=== PATIENT | male | born 1995 | race Caucasian/White ===

== ENCOUNTER 2017-10-18 18:55 | Emergency (ER) | payer OTHER ==
[2017-10-18 19:42] VITALS: TEMP 99.6
[2017-10-18 20:14] VITALS: BP 129/90; PULSE 70
[2017-10-18 20:29] VITALS: RESP 18
--- NOTE | 2017-10-18 20:47 | XR ---
EXAMINATION: XR chest 2V DATE AND TIME: 10/18/2017 8:40 PM ORDERING PROVIDER: Edenilson Gray CLINICAL INDICATION: cough TECHNIQUE: PA and lateral COMPARISON: None. DESCRIPTION: The lungs are clear. The pleural spaces are negative. The cardiac silhouette is not enlarged. The mediastinal and pleural silhouettes are unremarkable. The skeletal structures are intact without focal findings. The soft tissues are unremarkable. IMPRESSION: NO ACUTE PROCESS.
--- NOTE | 2017-10-18 20:50 | ED ---
General Adult HPI - General Chief complaint: Upper Respiratory Infection Stated complaint: congested Time Seen by Provider: 10/18/17 20:21 Source: patient, RN notes reviewed Mode of arrival: ambulatory Limitations: no limitations - History of Present Illness Initial comments: Patient 23-year-old male who presents emergency room today with multiple complaints. Patient does admit that he's had some cough congestion over the last 3 days. 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 She does not always wear mask. Unsure if this is related. Does not that she had some aches and chills over the weekend but not as bad this time. States he had some sputum production with his cough earlier today that was yellow. Patient also admits to some pain to the right middle finger. Patient does admit that he's had some pains swelling to the top the nailbed. Denies any drainage discharge. Denies any complaints. Patient denies any recent fever, chills, shortness of breath, chest pain, back pain, abdominal pain, nausea or vomiting, numbness or tingling, dysuria or hematuria, constipation or diarrhea, headaches or visual changes, or any other complaints. - Related Data Home Medications Medication Instructions Recorded Confirmed ARIPiprazole [Abilify] 2 mg PO DAILY 10/18/17 10/18/17 Cholecalciferol [Vitamin D3] 5,000 unit PO DAILY 10/18/17 10/18/17 Lisinopril [Zestril] 5 mg PO DAILY 10/18/17 10/18/17 [place] Carbonate 150 mg PO DAILY 10/18/17 10/18/17 Multivitamins, Thera [Multivitamin 1 tab PO DAILY 10/18/17 10/18/17 (formulary)] Venlafaxine HCl ER [Effexor Xr] 75 mg PO DAILY 10/18/17 10/18/17 Previous Rx's Medication Instructions Recorded Cephalexin [Keflex] 500 mg PO Q12HR 10 Days cap 10/18/17 Allergies Allergy/AdvReac Type Severity Reaction Status Date / Time No Known Allergies Allergy Verified 10/18/17 20:22 Review of Systems ROS Statement: Those systems with pertinent positive or pertinent negative responses have been documented in the HPI. ROS Other: All systems not noted in ROS Statement are negative. Past Medical History Past Medical History: No Reported History Additional Past Medical History / Comment(s): bipolar History of Any Multi-Drug Resistant Organisms: None Reported Past Surgical History: No Surgical Hx Reported Past Psychological History: Anxiety, Bipolar, Depression Smoking Status: Former smoker Past Alcohol Use History: None Reported Past Drug Use History: None Reported General Exam - General Exam Comments Initial Comments: General: The patient is awake and alert, in no distress, and does not appear acutely ill. Eye: Pupils are equal, round and reactive to light, extra-ocular movements are intact. No nystagmus. There is normal conjunctiva bilaterally. No signs of icterus. Ears, nose, mouth and throat: There are moist mucous membranes and no oral lesions. Neck: The neck is supple, there is no tenderness or JVD. Cardiovascular: There is a regular rate and rhythm. No murmur, rub or gallop is appreciated. Respiratory: Lungs are clear to auscultation, respirations are non-labored, breath sounds are equal. No wheezes, stridor, rales, or rhonchi. Musculoskeletal: Normal ROM, no tenderness. Strength 5/5. Sensation intact. Pulses equal bilaterally 2+. Neurological: A&O x 3. CN II-XII intact, There are no obvious motor or sensory deficits. Coordination appears grossly intact. Speech is normal. Skin: Patient does have paronychia to the right middle finger. Psychiatric: Cooperative, appropriate mood & affect, normal judgment. Limitations: no limitations Course Vital Signs 10/18/17 10/18/17 10/18/17 19:38 19:42 20:15 Temperature 99.6 F Pulse Rate 58 L 70 Respiratory 20 16 18 Rate Blood Pressure 134/81 129/90 O2 Sat by Pulse 99 100 Oximetry Procedures - Procedures Initial comment: Betadine was used to clean the right finger. An 11 blade was used to make small incision parallel to the nail bed. Small amount of drainage was removed. Patient tolerated well. Medical Decision Making - Medical Decision Making X-ray reviewed negative for any sign of pneumonia. No other acute abnormality. Patient's right index finger was lanced emergency room. Patient will be started on antibiotics cover for paronychia infection. Advised warm soaks. Advised return if symptoms increase worsen. Disposition Clinical Impression: Paronychia, Upper respiratory infection Disposition: HOME SELF-CARE Condition: Good Instructions: Paronychia (ED) Additional Instructions: Please use medication as discussed. Please follow-up with family doctor in the next 2 days of symptoms have not improved. Please return to emergency room if the symptoms increase or worsen or for any other concerns. Prescriptions: Cephalexin [Keflex] 500 mg PO Q12HR 10 Days cap Is patient prescribed a controlled substance at discharge?: No Referrals: None,Stated [Primary Care Provider] - 1-2 days Kathi Mora MD [STAFF PHYSICIAN] - 1-2 days Time of Disposition: 20:55
== END 2017-10-18 21:04 | disposition home or self-care (01) ==
LOC: EC 18:55
DX: J06.9 Acute upper respiratory infection, unspecified (principal); L03.011 Cellulitis of right finger; F31.9 Bipolar disorder, unspecified; F41.9 Anxiety disorder, unspecified; Z87.891 Personal history of nicotine dependence; Z79.899 Other long term (current) drug therapy
CPT/HCPCS: 10060; 71046; 99283

== ENCOUNTER 2018-01-11 16:43 | Emergency (ER) | payer OTHER ==
[2018-01-11 16:53] VITALS: BP 139/75; PULSE 77; RESP 20; TEMP 98.8
--- NOTE | 2018-01-11 17:45 | ED ---
General Adult HPI - General Chief complaint: Recheck/Abnormal Lab/Rx Stated complaint: poss STD Time Seen by Provider: 01/11/18 17:09 Source: patient, RN notes reviewed Mode of arrival: ambulatory Limitations: no limitations - History of Present Illness Initial comments: 22-year-old male presents to the emergency department for a chief complaint of lesion on penis 2 weeks. Patient states the lesion started 2 weeks ago and has since resolved. He states it looked like a pimple but that it has since healed. Patient states he had "close contact" with a female diagnosed with genital herpes. Patient denies having sexual intercourse with this person. Patient denies any fevers or chills. Patient denies any discharge from the penis. Patient denies any pain with urination or difficulty urinating. Patient denies any feelings of lethargy or rashes. Patient has no other complaints at this time including shortness of breath, chest pain, abdominal pain, nausea or vomiting, headache, or visual changes. - Related Data Home Medications Medication Instructions Recorded Confirmed ARIPiprazole [Abilify] 2 mg PO DAILY 10/18/17 10/18/17 Cholecalciferol [Vitamin D3] 5,000 unit PO DAILY 10/18/17 10/18/17 Lisinopril [Zestril] 5 mg PO DAILY 10/18/17 10/18/17 [place] Carbonate 150 mg PO DAILY 10/18/17 10/18/17 Multivitamins, Thera [Multivitamin 1 tab PO DAILY 10/18/17 10/18/17 (formulary)] Venlafaxine HCl ER [Effexor Xr] 75 mg PO DAILY 10/18/17 10/18/17 Previous Rx's Medication Instructions Recorded Cephalexin [Keflex] 500 mg PO Q12HR 10 Days cap 10/18/17 Allergies Allergy/AdvReac Type Severity Reaction Status Date / Time No Known Allergies Allergy Verified 01/11/18 17:18 Review of Systems ROS Statement: Those systems with pertinent positive or pertinent negative responses have been documented in the HPI. ROS Other: All systems not noted in ROS Statement are negative. Past Medical History Past Medical History: No Reported History Additional Past Medical History / Comment(s): bipolar History of Any Multi-Drug Resistant Organisms: None Reported Past Surgical History: No Surgical Hx Reported Past Psychological History: Anxiety, Bipolar, Depression Smoking Status: Former smoker Past Alcohol Use History: None Reported Past Drug Use History: None Reported General Exam Limitations: no limitations General appearance: alert, in no apparent distress Head exam: Present: atraumatic, normocephalic, normal inspection Eye exam: Present: normal appearance ENT exam: Present: normal exam, mucous membranes moist Neck exam: Present: normal inspection, full ROM. Absent: tenderness, meningismus, lymphadenopathy Respiratory exam: Present: normal lung sounds bilaterally. Absent: respiratory distress, wheezes, rales, rhonchi, stridor Cardiovascular Exam: Present: regular rate, normal rhythm, normal heart sounds. Absent: systolic murmur, diastolic murmur, rubs, gallop, clicks exam: Present: other (there is a small healed <0.5 cm x 0.5 cm lesion on the lateral aspect of penis. Sore is not open at this time. No other lesions noted) . Absent: urethral discharge (no discharge noted from the penis), scrotal swelling Course Vital Signs 01/11/18 16:50 Temperature 98.8 F Pulse Rate 77 Respiratory 20 Rate Blood Pressure 139/75 O2 Sat by Pulse 100 Oximetry Medical Decision Making - Medical Decision Making 22-year-old male presents to the emergency department for a chief complaint of concern for STD. Patient states he was exposed to genital herpes by "close contact" but did not have sexual intercourse with this person. Patient denies any urethral discharge, fever, rashes or chills. Patient does state there was a small lesion noted on his penis that has since resolved. On exam there is a very small lesion less than 0.5 cm on the lateral aspect of the penis. Lesion is healed and is not ulcerated. it does not appear to be herpes or chancre. Patient tested for gonorrhea, chlamydia, and syphilis. Not able to swab for herpes as lesion is healed. Patient refuses treatment for GC at this time as he does not believe he has these and wants to wait for the results. Patient will follow up with primary care in 1-2 days. patient aware he can return to the ED if he has any worsening symptoms. Disposition Clinical Impression: Concern about STD in male without diagnosis Disposition: HOME SELF-CARE Condition: Good Instructions: Sexually Transmitted Diseases (ED), Safe Sex (ED) Additional Instructions: Please return to the emergency department if you have any worsening symptoms. Follow up with primary care in 1-2 days. You will receive a call if any lab testing is abnormal in the next week or you can check your patient portal for results. Is patient prescribed a controlled substance at d/c from ED?: No Referrals: Stanislaw Juarez MD [STAFF PHYSICIAN] - 1-2 days Time of Disposition: 17:44
[2018-01-12 14:21] LABS: C. trachomatis,PCR Negative (Neg,Equiv); Chlamydia trachomatis Source Urine; N. gonorrhoeae,PCR Negative (Neg,Equiv); Neisseria Source Urine
== END 2018-01-11 18:10 | disposition home or self-care (01) ==
LOC: EC 16:43
DX: Z20.2 Contact with and (suspected) exposure to infections with a predominantly sexual mode of transmission (principal); N48.89 Other specified disorders of penis; F31.9 Bipolar disorder, unspecified; F41.9 Anxiety disorder, unspecified; Z87.891 Personal history of nicotine dependence; Z79.899 Other long term (current) drug therapy
CPT/HCPCS: 36415; 86780; 87491; 87591; 99283

== ENCOUNTER 2018-01-27 14:58 | Emergency (ER) | payer OTHER ==
--- NOTE | 2018-01-27 15:17 | ED ---
General Adult HPI - General Stated complaint: sleepiness/lethargy Time Seen by Provider: 01/27/18 15:16 Source: patient, RN notes reviewed Mode of arrival: ambulatory Limitations: no limitations - History of Present Illness Initial comments: 22-year-old male presents to the emergency department for a chief complaint of sleepiness times a few months. Patient states he has been more tired than normal. Patient denies any fevers or night sweats. Patient admits to a history of depression and states perhaps he has been feeling more sad than normal but denies any suicidal thoughts or thoughts of harming himself. Patient states he is concerned that perhaps the sleepiness is caused by diabetes as his sister was recently diagnosed. Patient also complains of left flank pain 2 days. Patient states he may have slept on it wrong but he is unsure. Patient questions whether he could have a kidney stone. Patient denies any testicular pain when asked. He states the pain is all in his left side back. Patient denies blood in the urine. Patient denies any urinary symptoms such as pain or burning with urination. Patient has no other complaints at this time including shortness of breath, chest pain, abdominal pain, nausea or vomiting, headache, or visual changes. - Related Data Home Medications Medication Instructions Recorded Confirmed ARIPiprazole [Abilify] 2 mg PO DAILY 10/18/17 01/11/18 Cholecalciferol [Vitamin D3] 5,000 unit PO DAILY 10/18/17 01/11/18 [place] Carbonate 150 mg PO DAILY 10/18/17 01/11/18 Multivitamins, Thera [Multivitamin 1 tab PO DAILY 10/18/17 01/11/18 (formulary)] [place] Carbonate 600 mg PO BID 01/11/18 01/11/18 Venlafaxine HCl [Effexor XR] 75 mg PO QAM 01/11/18 01/11/18 Allergies Allergy/AdvReac Type Severity Reaction Status Date / Time No Known Allergies Allergy Verified 01/27/18 15:20 Review of Systems ROS Statement: Those systems with pertinent positive or pertinent negative responses have been documented in the HPI. ROS Other: All systems not noted in ROS Statement are negative. Past Medical History Past Medical History: No Reported History Additional Past Medical History / Comment(s): bipolar History of Any Multi-Drug Resistant Organisms: None Reported Past Surgical History: No Surgical Hx Reported Past Psychological History: Anxiety, Bipolar, Depression Smoking Status: Former smoker Past Alcohol Use History: None Reported Past Drug Use History: None Reported General Exam General appearance: alert, in no apparent distress (sitting on edge of bed cooperative and answering questions) Head exam: Present: atraumatic, normocephalic, normal inspection Eye exam: Present: normal appearance. Absent: scleral icterus, conjunctival injection Neck exam: Present: normal inspection, full ROM. Absent: tenderness, meningismus, lymphadenopathy Respiratory exam: Present: normal lung sounds bilaterally. Absent: respiratory distress, wheezes, rales, rhonchi, stridor Cardiovascular Exam: Present: regular rate, normal rhythm, normal heart sounds. Absent: systolic murmur, diastolic murmur, rubs, gallop, clicks GI/Abdominal exam: Present: soft, normal bowel sounds. Absent: distended, tenderness, guarding, rebound, rigid Back exam: Present: full ROM (full flexion, extension, and rotation of back bilaterally), CVA tenderness (L), paraspinal tenderness (mild left sided mid back tenderness). Absent: tenderness (no tenderness in the cervical, thoracic, or lumbar spine.), CVA tenderness (R) Course Vital Signs 01/27/18 15:15 Temperature 98.3 F Pulse Rate 69 Respiratory 18 Rate Blood Pressure 132/82 O2 Sat by Pulse 99 Oximetry Medical Decision Making - Medical Decision Making 22-year-old male presents to the emergency department for a chief complaint of sleepiness 3 months. Patient concerned this could be diabetes as his sister was recently diagnosed. Patient has not had a history of diabetes before. Patient denies fevers or chills. No increased night sweats. Patient also complains of left-sided flank pain, denies history of kidney stones. Denies testicular pain multiple times. Vitals within normal limits on the emergency department. On exam patient has mild left flank tenderness as well as mild CVA tenderness. No abdominal pain. No other exam findings evident. Patient appears well on exam and is cooperative and pleasant. CBC and CMP unremarkable. Glucose 94. Urine shows no evidence of blood or infection. Discussed with patient that he may be feeling tired due to his history of depression. Patient was recommended to follow up with a primary care provider for this and back pain. If he has any thoughts of suicide or thoughts of harming himself he is to return to the emergency department. He is to return if he has any worsening flank pain. - Lab Data Result diagrams: 01/27/18 15:34 01/27/18 15:34 Lab Results 01/27/18 01/27/18 01/27/18 Range/Units 15:34 15:34 15:34 WBC 8.8 (3.8-10.6) k/uL RBC 5.47 (4.30-5.90) m/uL Hgb 14.7 (13.0-17.5) gm/dL Hct 46.0 (39.0-53.0) % MCV 84.0 (80.0-100.0) fL MCH 26.8 (25.0-35.0) pg MCHC 31.9 (31.0-37.0) g/dL RDW 12.5 (11.5-15.5) % Plt Count 347 (150-450) k/uL Neutrophils % 70 % Lymphocytes % 20 % Monocytes % 3 % Eosinophils % 3 % Basophils % 1 % Neutrophils # 6.1 (1.3-7.7) k/uL Lymphocytes # 1.8 (1.0-4.8) k/uL Monocytes # 0.3 (0-1.0) k/uL Eosinophils # 0.3 (0-0.7) k/uL Basophils # 0.1 (0-0.2) k/uL Sodium 138 (137-145) mmol/L Potassium 4.8 (3.5-5.1) mmol/L Chloride 104 (98-107) mmol/L Carbon Dioxide 26 (22-30) mmol/L Anion Gap 8 mmol/L BUN 15 (9-20) mg/dL Creatinine 1.00 (0.66-1.25) mg/dL Est GFR (CKD-EPI)AfAm >90 (>60 ml/min/1.73 sqM) Est GFR (CKD-EPI)NonAf >90 (>60 ml/min/1.73 sqM) Glucose 94 (74-99) mg/dL Calcium 10.1 (8.4-10.2) mg/dL Total Bilirubin 0.5 (0.2-1.3) mg/dL AST 27 (17-59) U/L ALT 33 (21-72) U/L Alkaline Phosphatase 67 (38-126) U/L Total Protein 7.9 (6.3-8.2) g/dL Albumin 4.8 (3.5-5.0) g/dL Urine Color Light Yellow Urine Appearance Clear (Clear) Urine pH 7.5 (5.0-8.0) Ur Specific [place] 1.009 (1.001-1.035) Urine Protein Negative (Negative) Urine Glucose (UA) Negative (Negative) Urine Ketones Negative (Negative) Urine Blood Negative (Negative) Urine Nitrite Negative (Negative) Urine Bilirubin Negative (Negative) Urine Urobilinogen <2.0 (<2.0) mg/dL Ur Leukocyte Esterase Negative (Negative) Disposition Clinical Impression: Muscle spasm of back Disposition: HOME SELF-CARE Condition: Good Instructions: Muscle Spasm (ED), Depression (ED) Additional Instructions: Please take motrin for pain. Please follow up with primary care provider in 1-2 days. Return to the emergency department if you have any worsening symptoms. Is patient prescribed a controlled substance at d/c from ED?: No Referrals: Bernardo House MD [STAFF PHYSICIAN] - 1-2 days Time of Disposition: 16:46
[2018-01-27 15:20] VITALS: BP 132/82; PULSE 69; RESP 18; TEMP 98.3
[2018-01-27 16:07] LABS: Appearance,Urine Clear (Clear); Bilirubin,Urine Negative (Negative); Blood,Urine Negative (Negative); Color,Urine Light Yellow; Glucose,Urine (UA) Negative (Negative); Ketones,Urine Negative (Negative); Leukocyte Esterase,Urine Negative (Negative); Nitrite,Urine Negative (Negative); PH, Urine 7.5 (5.0-8.0); Protein,Urine Negative (Negative); Specific Gravity,Urine 1.009 (1.001-1.035); Urobilinogen,Urine <2.0 mg/dL (<2.0)
[2018-01-27 16:13] LABS: Basophils # (A) 0.1 k/uL (0-0.2); Basophils % (A) 1 %; Eosinophils # (A) 0.3 k/uL (0-0.7); Eosinophils % (A) 3 %; HGB 14.7 gm/dL (13.0-17.5); Lymphocytes # (A) 1.8 k/uL (1.0-4.8); Lymphocytes % (A) 20 %; MCH 26.8 pg (25.0-35.0); MCHC 31.9 g/dL (31.0-37.0); Mean Platelet Volume 6.3; Monocytes # (A) 0.3 k/uL (0-1.0); Monocytes % (A) 3 %; Neutrophils # (A) 6.1 k/uL (1.3-7.7); Neutrophils % (A) 70 %; Platelet Count 347 k/uL (150-450); RBC 5.47 m/uL (4.30-5.90); RDW 12.5 % (11.5-15.5); WBC 8.8 k/uL (3.8-10.6)
[2018-01-27 16:15] LABS: ALT 33 U/L (21-72); AST 27 U/L (17-59); Albumin 4.8 g/dL (3.5-5.0); Alkaline Phosphatase 67 U/L (38-126); Anion Gap 8 mmol/L; Blood Urea Nitrogen 15 mg/dL (9-20); Calcium 10.1 mg/dL (8.4-10.2); Carbon Dioxide 26 mmol/L (22-30); Chloride 104 mmol/L (98-107); Glucose 94 mg/dL (74-99); Potassium 4.8 mmol/L (3.5-5.1); Sodium 138 mmol/L (137-145); Total Bilirubin 0.5 mg/dL (0.2-1.3); Total Protein 7.9 g/dL (6.3-8.2)
== END 2018-01-27 16:57 | disposition home or self-care (01) ==
LOC: EC 14:58
DX: M62.830 Muscle spasm of back (principal); F31.9 Bipolar disorder, unspecified; F41.9 Anxiety disorder, unspecified; Z79.899 Other long term (current) drug therapy; Z87.891 Personal history of nicotine dependence
CPT/HCPCS: 36415; 80053; 81003; 85025; 99283

== ENCOUNTER → 2018-12-13 | Outpatient (CLI) | payer OTHER ==
--- NOTE | 2018-12-13 12:36 | XR ---
EXAMINATION TYPE: XR hand complete LT DATE OF EXAM: 12/13/2018 CLINICAL HISTORY: Hand injury with pain worse over fingers. TECHNIQUE: Frontal, lateral and oblique images of the left hand are obtained. COMPARISON: None. FINDINGS: There is no acute fracture/dislocation evident in the left hand with particular attention to the fingers. The joint spaces in the left hand appear within normal limits. The overlying soft ti ssue appears unremarkable. IMPRESSION: There is no acute fracture or dislocation in the left hand.
== END | disposition home or self-care (01) ==
LOC: RADXRMAIN 12:04
PROVIDERS: ATTEND Emergency Medicine
DX: S67.22XA Crushing injury of left hand, initial encounter (principal)

== ENCOUNTER 2018-12-25 14:22 | Emergency (ER) | payer OTHER ==
[2018-12-25 14:31] VITALS: RESP 18
[2018-12-25] MEDS ORDERED: KETOROLAC 30 MG/ML 1 ML VIAL IVP STA (14:39)
[2018-12-25] MEDS ORDERED: SODIUM CHLORIDE 0.9% 1,000 ML IV ONE (14:39)
--- NOTE | 2018-12-25 14:41 | ED ---
General Adult HPI - General Chief complaint: Headache Stated complaint: Exposure to mold Time Seen by Provider: 12/25/18 14:32 Source: patient Mode of arrival: ambulatory Limitations: no limitations - History of Present Illness Initial comments: Patient is a 23-year-old male with a history of bipolar depression, currently on lithium, presents with a chief complaint of cough, headache, and body aches. The patient states that he was possibly exposed to black mold yesterday while cleaning out a basement his friends. He states that all of his friends have similar symptoms. Imaging identify any other concerning incidences. There are no aggravating or alleviating factors. Timing is constant. Patient is at her taking any medications for symptom alleviation. - Related Data Home Medications Medication Instructions Recorded Confirmed ARIPiprazole [Abilify] 2 mg PO DAILY 10/18/17 01/11/18 Cholecalciferol [Vitamin D3] 5,000 unit PO DAILY 10/18/17 01/11/[address] [place] Carbonate 150 mg PO DAILY 10/18/17 01/11/18 Multivitamins, Thera [Multivitamin 1 tab PO DAILY 10/18/17 01/11/18 (formulary)] [place] Carbonate 600 mg PO BID 01/11/18 01/11/18 Venlafaxine HCl [Effexor XR] 75 mg PO QAM 01/11/18 01/11/18 Allergies Allergy/AdvReac Type Severity Reaction Status Date / Time No Known Allergies Allergy Verified 12/25/18 14:31 Review of Systems ROS Statement: Those systems with pertinent positive or pertinent negative responses have been documented in the HPI. ROS Other: All systems not noted in ROS Statement are negative. Respiratory: Reports: cough Neurological: Reports: headache Past Medical History Past Medical History: No Reported History Additional Past Medical History / Comment(s): bipolar History of Any Multi-Drug Resistant Organisms: None Reported Past Surgical History: No Surgical Hx Reported Past Psychological History: Anxiety, Bipolar, Depression Smoking Status: Former smoker Past Alcohol Use History: None Reported Past Drug Use History: None Reported General Exam Limitations: no limitations General appearance: alert, in no apparent distress Head exam: Present: atraumatic, normocephalic Eye exam: Present: normal appearance ENT exam: Present: normal exam Neck exam: Present: normal inspection Respiratory exam: Present: normal lung sounds bilaterally. Absent: respiratory distress, wheezes Cardiovascular Exam: Present: regular rate, normal rhythm GI/Abdominal exam: Present: soft. Absent: distended, tenderness Rectal exam: Present: deferred Extremities exam: Present: normal inspection Back exam: Present: normal inspection Neurological exam: Present: alert, oriented X3, normal gait Psychiatric exam: Present: normal affect, normal mood Skin exam: Present: warm, dry, intact Course Vital Signs 12/25/18 14:27 Temperature 98.5 F Pulse Rate 55 L Respiratory 18 Rate Blood Pressure 123/74 O2 Sat by Pulse 97 Oximetry Medical Decision Making - Medical Decision Making Patient presents with chief complaint of cough, congestion, body aches, and headache. I initial evaluation, vital are stable, patient is in no acute distress. He is neurologically intact, ambulatory well without assistance. He is concern for exposure to black mold. He'll be evaluated basic labs including a chest x-ray. Patient takes lithium a daily basis, we will check a lithium level given headache. 3:22 PM Lab evaluation is unremarkable, lithium level is 1.2, within the therapeutic range. Chest x-ray shows no acute process. At this time, patient stable for discharge. He was instructed to use antihistamines for symptom relief, Motrin and Tylenol as needed for body aches and follow-up primary care in 1-2 days, r eturn to ED if symptoms worsen or change. - Lab Data Result diagrams: 12/25/18 14:50 12/25/18 14:50 Lab Results 12/25/18 12/25/18 Range/Units 14:50 14:50 WBC 7.3 (3.8-10.6) k/uL RBC 4.86 (4.30-5.90) m/uL Hgb 13.5 (13.0-17.5) gm/dL Hct 42.2 (39.0-53.0) % MCV 86.9 (80.0-100.0) fL MCH 27.7 (25.0-35.0) pg MCHC 31.9 (31.0-37.0) g/dL RDW 12.7 (11.5-15.5) % Plt Count 288 (150-450) k/uL Neutrophils % 72 % Lymphocytes % 15 % Monocytes % 8 % Eosinophils % 2 % Basophils % 1 % Neutrophils # 5.3 (1.3-7.7) k/uL Lymphocytes # 1.1 (1.0-4.8) k/uL Monocytes # 0.6 (0-1.0) k/uL Eosinophils # 0.1 (0-0.7) k/uL Basophils # 0.1 (0-0.2) k/uL Sodium 140 (137-145) mmol/L Potassium 3.8 (3.5-5.1) mmol/L Chloride 105 (98-107) mmol/L Carbon Dioxide 26 (22-30) mmol/L Anion Gap 9 mmol/L BUN 10 (9-20) mg/dL Creatinine 1.00 (0.66-1.25) mg/dL Est GFR (CKD-EPI)AfAm >90 (>60 ml/min/1.73 sqM) Est GFR (CKD-EPI)NonAf >90 (>60 ml/min/1.73 sqM) Glucose 122 H (74-99) mg/dL Calcium 9.6 (8.4-10.2) mg/dL [place] 1.2 mmol/L Disposition Clinical Impression: Viral syndrome, URI (upper respiratory infection) Disposition: HOME SELF-CARE Condition: Good Instructions (If sedation given, give patient instructions): Acute Headache (ED), Upper Respiratory Infection (ED) Is patient prescribed a controlled substance at d/c from ED?: No Referrals: None,Stated [Primary Care Provider] - 1-2 days Kathi Mora MD [STAFF PHYSICIAN] - 1-2 days
[2018-12-25 15:08] LABS: Basophils # (A) 0.1 k/uL (0-0.2); Basophils % (A) 1 %; Eosinophils # (A) 0.1 k/uL (0-0.7); Eosinophils % (A) 2 %; HCT 42.2 % (39.0-53.0); HGB 13.5 gm/dL (13.0-17.5); Lymphocytes # (A) 1.1 k/uL (1.0-4.8); Lymphocytes % (A) 15 %; MCH 27.7 pg (25.0-35.0); MCHC 31.9 g/dL (31.0-37.0); MCV 86.9 fL (80.0-100.0); Mean Platelet Volume 6.4; Monocytes # (A) 0.6 k/uL (0-1.0); Monocytes % (A) 8 %; Neutrophils # (A) 5.3 k/uL (1.3-7.7); Neutrophils % (A) 72 %; Platelet Count 288 k/uL (150-450); RBC 4.86 m/uL (4.30-5.90); RDW 12.7 % (11.5-15.5); WBC 7.3 k/uL (3.8-10.6)
[2018-12-25 15:17] LABS: African American GFR (CKD) >90 (>60 ml/min/1.73 sqM); Anion Gap 9 mmol/L; Blood Urea Nitrogen 10 mg/dL (9-20); Calcium 9.6 mg/dL (8.4-10.2); Carbon Dioxide 26 mmol/L (22-30); Chloride 105 mmol/L (98-107); Glucose 122 mg/dL (74-99); Lithium 1.2 mmol/L; Potassium 3.8 mmol/L (3.5-5.1); Sodium 140 mmol/L (137-145)
--- NOTE | 2018-12-25 15:21 | XR ---
EXAMINATION TYPE: XR chest 2V DATE OF EXAM: 12/25/2018 COMPARISON: 10/18/2017 HISTORY: Cough TECHNIQUE: Frontal and lateral views of the chest are obtained. FINDINGS: Heart and mediastinum are normal. Lungs are clear. Diaphragm is normal. Bony thorax appear s normal. IMPRESSION: Normal chest. No change.
[2018-12-25 17:20] VITALS: BP 125/83; PULSE 50; TEMP 97.9
== END 2018-12-25 17:20 | disposition home or self-care (01) ==
LOC: EC 14:22
DX: B34.9 Viral infection, unspecified (principal); J06.9 Acute upper respiratory infection, unspecified; F41.9 Anxiety disorder, unspecified; F32.9 Major depressive disorder, single episode, unspecified; Z87.891 Personal history of nicotine dependence; Z79.899 Other long term (current) drug therapy
CPT/HCPCS: 36415; 80048; 80178; 85025; 71046; 99284; 96374; 96361 ×2; J1885